=== PATIENT | male | born 1955 | race Caucasian/White ===

== ENCOUNTER 2018-06-23 01:42 | Inpatient (IN) | payer BC ==
--- NOTE | 2018-06-22 14:29 | LEVENE H&P ---
DATE OF ADMISSION: June 23, 2018 IDENTIFICATION/CHIEF COMPLAINT Farhan is a 62-year-old gentleman with a chief complaint of right hip pain. HISTORY OF PRESENT ILLNESS Patient has a longstanding history of hip arthritis progressively painful and debilitating and refractory to conservative care. Surgery is indicated to relieve symptoms after failure of nonoperative measures. PAST MEDICAL HISTORY 1. Hypertension. 2. Sleep apnea. He does use his CPAP. 3. Borderline diabetes. PAST SURGICAL HISTORY 1. Right knee operation. 2. Treatment of ring finger injury and bilateral cataract surgery. ALLERGIES No known drug allergies. CURRENT MEDICATIONS 1. Lisinopril 40 mg p.o. every day. 2. Gabapentin 300 mg p.o. every day. 3. Verapamil 240 mg p.o. every day. 4. Spiriva as needed. 5. Hydrochlorothiazide 12.5 mg p.o. every day. 6. Baby aspirin a day. FAMILY HISTORY Noncontributory. SOCIAL HISTORY Notable for smoking a pack a day of cigarettes for a long time. He quite nine months ago. Denies alcohol use or abuse. REVIEW OF SYSTEMS Negative. PHYSICAL EXAMINATION GENERAL: This is a well-developed, well-nourished male who appears stated age. HEENT: Normocephalic, atraumatic. NECK: Supple. LUNGS: Clear. HEART: Regular. ABDOMEN: Soft. ORTHOPEDIC EXAMINATION The right hip is extremely stiff. He has limitation of flexion and rotation. Hip girdle strength is normal. It is mildly tender over the groin. Otherwise, nontender. Skin is intact. Neurovascular function is intact. Radiographs demonstrate end-stage hip arthritis. ASSESSMENT Right hip end-stage degenerative joint disease progressively painful and debilitating and refractor to conservative care. PLAN Per patient request, we will proceed with total hip arthroplasty. The nature of the procedure, risks, benefits and nonoperative alternatives were reviewed. The risks of the procedure include but are not limited to , major medical or anesthetic complication, infection, neurovascular injury, blood transfusion, stiffness, scarring, fracture, tendon rupture, instability, implant loosening, migration or failure, persistent or recurrent pain or symptoms, leg length discrepancy and other unforeseen. He understands and wishes to proceed. A signed permit is placed in the chart. No guarantees are given or implied. QUE
[2018-06-22 15:36] LABS: INR 1.01
[~2018-06-23] VITALS: Ht 182.9 cm; Wt 112.0 kg
[2018-06-23] VITALS (13 sets, daily range): BP systolic 124–166; BP diastolic 83–94
[~2018-06-23 01:42] MED LIST: ACETAMINOPHEN 500 MG TAB PO ONE; ALVERT PO; ASPI-1471 PO; CELECOXIB 200 MG CAP PO ONE; GABA-549 PO; GLUC-198 PO; HYDR-2966 PO; LISI-374 PO; MULT-27 PO; TIO18R INH; TRAM-420 PO; VERA240C10 PO
[2018-06-23] MEDS ORDERED: VANCOMYCIN 1 GM VIAL ONE (07:12)
[2018-06-23] MEDS ORDERED: fentaNYL CITR 100 MCG/2 ML AMP ONE (07:40)
[2018-06-23] MEDS ORDERED: DEXAMETHASONE SOD 4 MG/ML VIAL ONE (07:41)
[2018-06-23] MEDS ORDERED: LIDOCAINE MPF 1% 5 ML VIAL ONE ×2 (07:41)
[2018-06-23] MEDS ORDERED: ONDANSETRON 4 MG/2 ML VIAL ONE (07:41)
[2018-06-23] MEDS ORDERED: PROPOFOL EMUL(*) 10MG/ML 20 ML 20 ML ONE (07:41)
[2018-06-23] MEDS ORDERED: KETAMINE HCL 200 MG/20 ML MDV ONE (07:43)
[2018-06-23] MEDS ORDERED: CELECOXIB 200 MG CAP PO ONE (08:45)
[2018-06-23] MEDS ORDERED: TRANEXAMIC AC 1000 MG/10ML SDV 1,000 MG in DEXTROSE 5% 50 ML BAG 50 ML IV ONE (08:45)
[2018-06-23] MEDS ORDERED: FAMOTIDINE 20 MG TAB PO ONE (08:45)
[2018-06-23] MEDS ORDERED: ceFAZolin(*) 2GM/D5W 50ML 50 ML IVPB ONE (08:45)
[2018-06-23] MEDS ORDERED: LIDOCAINE/SOD BICARB 8.4% SYR ID ONE (08:45)
[2018-06-23] MEDS ORDERED: ROPIVACAINE/EPI/CLONIDINE/KET 50 ML SYRINGE INJ ONE (08:45)
[2018-06-23] MEDS ORDERED: NORMOSOL R SOLN(*) 1000 ML BAG 1,000 ML IV PRN ×2 (08:45→12:10)
[2018-06-23] MEDS ORDERED: ACETAMINOPHEN 500 MG TAB PO ONE (08:45)
[2018-06-23] MEDS ORDERED: MIDAZOLAM 2 MG/2 ML VIAL IVP PRN (08:45)
[2018-06-23] MEDS ORDERED: LACTATED RINGER 3000 ML BAG IR ONE (10:28)
[2018-06-23] MEDS ORDERED: NS 0.9% IRRIGATION 1000ML PLCT IR ONE (10:28)
[2018-06-23] MEDS ORDERED: ZOLPIDEM TARTRATE 5 MG TAB PO PRN (12:10)
[2018-06-23] MEDS ORDERED: diphenhydrAMINE 50 MG/ML VIAL IVP PRN (12:10)
[2018-06-23] MEDS ORDERED: diphenhydrAMINE 25 MG CAP PO PRN (12:10)
[2018-06-23] MEDS ORDERED: BISACODYL 10 MG SUPP PR PRN (12:10)
[2018-06-23] MEDS ORDERED: FLUSH 10 ML SYR IVP PRN (12:10)
[2018-06-23] MEDS ORDERED: ACETAMINOPHEN 325 MG TAB PO PRN (12:10)
[2018-06-23] MEDS ORDERED: PROMETHAZINE 25 MG/ML 1 ML AMP IVP PRN (12:10)
[2018-06-23] MEDS ORDERED: MAGNESIUM HYDROXIDE* 30ML UDCP PO PRN (12:10)
[2018-06-23] MEDS ORDERED: BENZOCAINE/MENTHOL 1 EACH LOZG PO PRN (12:10)
[2018-06-23] MEDS ORDERED: CART1TAB4 PO (13:35)
--- NOTE | 2018-06-23 13:36 | RADIOLOGY IMAGING REPORT ---
FACILITY: [facility] - [place] PATIENT NAME: Niels Ryan : 1955 MR: [id number] V: [id number] EXAM DATE: ORDERING PHYSICIAN: COBY CABEZAS TECHNOLOGIST: Location: [facility] Patient: Niels Ryan : 1955 Visit/Account:[id number] Date of Sevice: 06/23/2018 PELVIS HISTORY: S/P TOTAL HIP C HECK PLACEMENT OF PROSTHESIS COMPARISON: None. FINDINGS: Single frontal projection demonstrates anatomic alignment with expected soft tissue changes status po st right total hip arthroplasty. IMPRESSION: Stomach alignment with expected changes status post right total hip arthroplasty Report Dictated By: Santino Alcantara MD at 06/23/2018 1:32 PM Report E-Signed By: Santino Alcantara MD at 06/23/2018 1:33 PM WSN:[id number]
--- NOTE | 2018-06-23 13:55 | Hospitalist Consultation ---
History of Present Illness Requesting Physician Dr. Cornejo Reason for Consult Medical Management Chief Complaint s/p right hip replacement History of Present Illness He was admitted s/p right hip replacement. It is reported the surgery went well and without complication. History Problems: (1) AKOSUA (obstructive sleep apnea) Status: Chronic (2) COPD (chronic obstructive pulmonary disease) Status: Chronic (3) Hypertension Status: Chronic Home Meds Reported Medications Cartilage/Collagen/Bor/Hyalur (Move Free Ultra Tablet) 40 Mg-5 Mg-3.3 Mg Tablet, 1 TAB PO QDAY 06/23/18 Mu-Vits-Min Th/Lycopene/Lutein (CENTRUM SILVER TABLET) 1 Each Tablet, 1 EACH PO 06/16/18 Lisinopril (LISINOPRIL) 40 Mg Tablet, 40 MG PO QDAY, TAB 06/16/18 Aspirin (ASPIR 81) 81 Mg Tablet.dr, 81 MG PO QDAY, TAB 06/16/18 Tiotropium [place] (SPIRIVA) 18 Mcg/Cap Inh, 18 MCG INH PRN for SHORTNESS OF BREATH, INH 06/16/18 [Alvert] No Conflict Check, 10 MG PO PRN 06/16/18 Hydrochlorothiazide (HYDROCHLOROTHIAZIDE) 25 Mg Tablet, 1 TAB PO QDAY, TAB 06/16/18 Gabapentin (GABAPENTIN) 300 Mg Capsule, 600 MG PO TID, CAPSULE 06/16/18 Tramadol Hcl (TRAMADOL HCL) 50 Mg Tablet, 50 MG PO BID, TAB 06/16/18 Verapamil Hcl (VERAPAMIL ER) 240 Mg Cap24h.pel, 240 MG PO QDAY 06/16/18 Discontinued Reported Medications Glucosa Rascon 2KCL/Chondroitin Rascon (GLUCOSAMINE & CHONDROITIN CAP) 1 Each Capsule, 1 EACH PO, CAPSULE 06/16/18 Allergies: Coded Allergies: No Known Drug Allergies (Unverified , 06/16/18) Hx Smoking: Yes (QUIT 2018) Smoking Status: Former Smoker Caffeine Intake: Coffee Caffeine/Cups Per Day: 3 CUPS/DAY Hx Alcohol Use: Yes Alcohol Used: Beer Hx Substance Use Disorder: Yes (40 YEARS AGO) Review of Systems All Systems Reviewed/Normal: Yes, Except as Noted Exam Vital Signs Vital Signs Date Time Temp Pulse Resp B/P (MAP) Pulse Ox O2 Delivery O2 Flow Rate FiO2 06/23/18 13:10 96.5 78 16 143/87 (105) 92 Nasal Cannula 2.0 General Appearance: Alert, Awake, No Acute Distress, Afebrile Neuro: No Gross deficits Cardiovascular: Regular Rate and Rhythm Respiratory: No Respiratory Distress, Clear to Auscultation GI: Abd Soft and Non-Tender Psych: Alert & Oriented X3, Appropriate Mood & Affect Assessment and Plan Problems: (1) Status post right hip replacement Status: Acute Assessment & Plan: Followed by Dr. Cornejo. The patient will be placed on Aspirin for DVT prophylaxis. (2) Hypertension Status: Chronic Assessment & Plan: He is on chronic treatment with Verapamil, Lisinopril and Hydrochlorothiazide. The Verapamil, Lisinopril have been restarted with hold parameters. (3) COPD (chronic obstructive pulmonary disease) Status: Chronic Assessment & Plan: He is on chronic treatment with Spiriva. Continue. (4) AKOSUA (obstructive sleep apnea) Status: Chronic Assessment & Plan: He is on chronic treatment with CPAP. He did bring his own machine to use during admission. Venous Thromboembolism Antithrombotics Is Pt On Any Antithrombotics?: No Problem Qualifiers (1) Hypertension: Hypertension type: essential hypertension Qualified Codes: I10 - Essential (primary) hypertension PRISCILLA SILVA ADMINISTRATIVE MANAGER Jun 23, 2018 13:55
--- NOTE | 2018-06-23 15:07 | NUR ---
Physical Therapy Impression PT eval complete. PT reviewed total hip precautions with pt. Pt completed supine to sit bed mobility with Lalito and verbal cues, SBA for sit to supine. CGA for side step at EOB with RW. Physical Therapy Goals 1: Pt to complete bed mobility with Lalito 2: Pt to complete transfers with SBA and RW 3: Pt to ambulate 150' with SBA and RW 4: Pt to asc/desc 1 step with SBA 5: Pt to demonstrate adherence to posterior hip pxns with functional mobility. Patient's Goals
[2018-06-23] MEDS: APAP/HYDROCODONE 325/7.5 TAB PO PRN ×3 (15:33→23:48)
[2018-06-23] MEDS: GABAPENTIN 300 MG CAP PO SCH ×2 (16:28→20:48)
--- NOTE | 2018-06-23 17:11 | OPERATIVE REPORT 1 ---
EVENT DATE: June 23, 2018 SURGEON: Andry Cornejo MD ANESTHESIOLOGIST: Choco Ballesteros MD ANESTHESIA: General plus spinal. WILDLIFE MANAGEMENT PROFESSOR: Donald Quick PA-C PREOPERATIVE DIAGNOSIS Right hip end-stage degenerative joint disease. POSTOPERATIVE DIAGNOSIS Right hip end-stage degenerative joint disease. PROCEDURE PERFORMED Right total hip arthroplasty. ESTIMATED BLOOD LOSS 300 mL. DRAINS None. SPECIMENS None. COMPLICATIONS None apparent. IMPLANTS USED [employer] system with a Trident PSL GOEL cluster acetabular shell 54 mm with a zero- degree polyethylene insert, Trident X3. He has an Accolade to 132 degree-neck angle hip stem size 7 with a Biolox Delta Ceramic V40 femoral head, 36 mm ball, with +7.5 neck length. INDICATIONS Niels is a 62-year-old gentleman with intractable pain and disability related to end-stage hip arthritis. Surgery is indicated to relieve symptoms after failure of other measures. DESCRIPTION OF PROCEDURE Patient is taken to the operating room and placed supine on the operating table. Spinal block is administered by the anesthesiologist. General anesthesia is induced. Antibiotics and TXA are administered IV. Patient is positioned in the left lateral decubitus on a well-padded pegboard. Pelvis is secured in a vertical position. All bony prominences and superficial nerves are well padded. Right hip girdle and lower extremity are prepped and draped in the usual sterile fashion for hip arthroplasty. A standard incision posterolateral approach is made, carried down through the skin and subcutaneous tissue down to the deep fascia. Fascia is incised over the tip of the trochanter, extended distally in line with the femur, proximally in line with the reyes fibers. Reyes fibers are split bluntly. Trochanteric bursa is excised. Interval between the abductor and external rotator is identified. Abductor mechanism is protected with a blunt Hohmann. An L capsulotomy is made starting with the horizontal limb above the piriformis, through the capsule, and then peeling the capsule and the external rotators off the posterior aspect of the femur. This is tagged with #2 Vicryl for later anatomic reattachment. Femoral head is dislocated. End-stage arthritis is noted. A 1.5 cm neck cut is made consistent with preoperative planning. Femoral head is extracted. Femur is translocated anteriorly. Lyn-acetabular retractors are placed with the tips down on bone. Labrum and pulvinar are excised. A 44 mm reamer is used to medialize through the true medial wall of the acetabulum. This is expanded in 2 mm increments up to 54. Nice rim contact is obtained. Trial 54 has nice fit and fill. The throat of the acetabulum is opened with a 55 to accommodate the raised rim liner. Surfaces are lavaged. Some large bone cysts are curetted out and bone grafted with the reamings, and then the actual shell is impacted in approximately 40 degrees of lateral opening and 15 to 20 degrees of anteversion using the transverse acetabular ligament, internal bony landmarks, and extracorporeal guide to guide socket placement. Rock-solid fixation is achieved. No adjuvant fixation felt to be needed. The shell is lavaged and dried, and the actual liner is locked into the shell. Attention is turned to femoral preparation. Superior neck is resected with a [employer] cutter. Rowena awl finds the canal. Tapered broaching is performed up to size 7 where nice secure, stable fixation is achieved. Care is taken to lateralize and assure that the version follows the [place] calcar at about 15 degrees anteversion. Trial reduction is performed with various neck lengths, and good presybeterian of the limb length and stability are achievable with the stem. The broach is removed, and the actual implant is inserted and firmly fixed into position. Trial reduction is performed with various neck lengths. The +7.5 is optimal for presybeterian of the limb length, stability, and soft tissue tension. Pat taper is lavaged and dried. The actual Biolox head is impacted into position. Joint is reduced. Wound is copiously lavaged. Drill holes are created in the posterolateral femur for reattachment of the capsule and external rotators. Vancomycin powder is placed deep into the capsule and wound. Capsule is closed at the site of the L capsulotomy with [id number] #2 Vicryl suture. Deep fascia is closed with #2 Ethibond, proximally with #2 Vicryl. Subcutaneous tissue is lavaged, and hemostasis is assured. Derm is closed with 3-0 Vicryl, skin with surgical debo. Xeroform is applied for a dry, sterile dressing and compression wrap. Patient is awakened from anesthesia and taken to the recovery room in stable condition having tolerated the procedure well. PLAN Plan is for standard [facility] rehab protocol, weightbearing as tolerated, posterior hip precautions. MTDD
[2018-06-23] MEDS: CELECOXIB 200 MG CAP PO SCH (17:28)
[2018-06-23] MEDS: ceFAZolin(*) 1 GM VIAL 1 GM in NS(*) 0.9% 100 ML ADDVANT BAG 100 ML IVPB SCH (17:28)
[2018-06-23] MEDS: DIAZEPAM 5 MG TAB PO PRN (23:48)
[2018-06-24] VITALS: BP 132/84
[2018-06-24] MEDS: ceFAZolin(*) 1 GM VIAL 1 GM in NS(*) 0.9% 100 ML ADDVANT BAG 100 ML IVPB SCH ×2 (02:39→10:06)
[2018-06-24 04:00] VITALS: BP 138/77
[2018-06-24] MEDS: APAP/HYDROCODONE 325/7.5 TAB PO PRN ×2 (05:11→10:05)
[2018-06-24] MEDS ORDERED: TIOTROPIUM BROM INH 18 MCG/CAP INH SCH (06:00)
[2018-06-24] MEDS ORDERED: HYDR-654 PO (07:51)
[2018-06-24] MEDS: DIAZEPAM 5 MG TAB PO PRN ×2 (08:06→14:11)
[2018-06-24 08:34] VITALS: BP 155/95
[2018-06-24] MEDS: CELECOXIB 200 MG CAP PO SCH (08:38)
[2018-06-24] MEDS: GABAPENTIN 300 MG CAP PO SCH ×2 (08:40→14:11)
[2018-06-24] MEDS ORDERED: VERAPAMIL HCL SR 240 MG TABCR PO SCH (09:00)
[2018-06-24] MEDS ORDERED: ASPIRIN 325 MG TAB PO SCH (09:00)
[2018-06-24] MEDS ORDERED: TAMSULOSIN HCL 0.4 MG CAP PO SCH (09:00)
[2018-06-24] MEDS ORDERED: LISINOPRIL 20 MG TAB PO SCH (09:00)
--- NOTE | 2018-06-24 10:54 | NUR ---
Occupational Therapy Impression Pt alert and agreeable to OT tx. Reviewed THR and ADLs handout. Pt recalling 2/3 posterior hip precautions. Requiring v/c's to maintain and progressively adhering better as tx progressed. Mod (I) bed mobility with v/c's. Mod (I) ambulation with RW. Mod (I) toileting. Mod (I) UB/LB dressing. Pt has a raised toilet seat, RW, and leather roller. Educated on where to obtain sock aid. Pt reports he will complete sponge baths. SpO2 WNL on room air throughout tx. Pt reporting no further questions/concerns for OT at end of tx session. Recommend discharge home when medically appropriate and cleared by PT. Occupational Therapy Goals Patient's Goal
[2018-06-24] MEDS ORDERED: ASPI-757 PO (11:45)
--- NOTE | 2018-06-24 12:18 | Hospitalist Progress Note ---
Subjective Progress Notes Subjective He was admitted s/p hip replacement. He has no complaints this morning. He had no acute events overnight. Patient Complains of: Cardiovascular: No: Chest Pain Respiratory: No: Shortness of Breath Physical Exam Vital Signs Date Time Temp Pulse Resp B/P (MAP) Pulse Ox O2 Delivery O2 Flow Rate FiO2 06/24/18 08:34 98.0 86 18 155/95 (115) 89 Room Air 06/24/18 05:19 5.0 Intake and Output 06/24/18 01:00 Intake Total 4140 ml Output Total 200 ml Balance 3940 ml Intake Oral 1640 ml IV Total 2500 ml Output Estimated Blood Loss 200 ml # Voids 1 # Bowel Movements 0 # Emeses 0 General Appearance: Alert, Awake, No Acute Distress, Afebrile Neuro: No Gross deficits Cardiovascular: Regular Rate and Rhythm Respiratory: No Respiratory Distress, Clear to Auscultation GI: Soft and Non-Tender Psych: Alert & Oriented X3, Appropriate Mood & Affect Assessment and Plan Problems: (1) Status post right hip replacement Status: Acute Assessment & Plan: Followed by Dr. Cornejo. The patient will be placed on Aspirin for DVT prophylaxis. (2) Hypertension Status: Chronic Assessment & Plan: He is on chronic treatment with Verapamil, Lisinopril and Hydrochlorothiazide. The Verapamil, Lisinopril have been restarted with hold parameters. He will resume all his usual medications tomorrow at home. (3) COPD (chronic obstructive pulmonary disease) Status: Chronic Assessment & Plan: He is on chronic treatment with Spiriva. Continue. (4) AKOSUA (obstructive sleep apnea) Status: Chronic Assessment & Plan: He is on chronic treatment with CPAP. He did bring his own machine to use during admission. Exam Sepsis Risk: No Definite Risk Problem Qualifiers (1) Hypertension: Hypertension type: essential hypertension Qualified Codes: I10 - Essential (primary) hypertension PRISCILLA SILVAP Jun 24, 2018 12:18
[2018-06-24 14:20] VITALS: Ht 182.9 cm; Wt 112.0 kg
--- NOTE | 2018-06-24 16:26 | NUR ---
Physical Therapy Impression Pt safe for DC from a mobility standpoint. Physical Therapy Goals 1: Pt to complete bed mobility with Lalito 2: Pt to complete transfers with SBA and RW 3: Pt to ambulate 150' with SBA and RW 4: Pt to asc/desc 1 step with SBA 5: Pt to demonstrate adherence to posterior hip pxns with functional mobility. Patient's Goals
== END 2018-06-24 14:30 | disposition home or self-care (01) | DRG 470 ==
LOC: OR 01:42 → MED 13:00
PROVIDERS: ADMIT Orthopaedic Surgery; ATTEND Orthopaedic Surgery
PROC: 5A09357 Assistance with Respiratory Ventilation, Less than 24 Consecutive Hours, Continuous Positive Airway Pressure (ICD-10-PCS; 2018-06-23)
PROC: 0SRB04A Replacement of Left Hip Joint with Ceramic on Polyethylene Synthetic Substitute, Uncemented, Open Approach (ICD-10-PCS; principal; 2018-06-23 09:27)
DX: M16.11 Unilateral primary osteoarthritis, right hip (principal); I10 Essential (primary) hypertension; G47.33 Obstructive sleep apnea (adult) (pediatric); J44.9 Chronic obstructive pulmonary disease, unspecified; Z87.891 Personal history of nicotine dependence
CPT/HCPCS: 36415; 72170; 85610; 86850; 86900; 86901; 94640; 97161; 97165; C1776; J0690; J1100; J2001; J2250; J2405; J2704; J3010; J3370; J3490; J3535; J7050; J7060